=== PATIENT | female | born 1995 | race Two or more races ===

== ENCOUNTER → 2018-11-22 | Emergency (ER) | payer MEDICAID ==
[~2018-11-22] VITALS: Ht 160 cm; Wt 62.0 kg
[~2018-11-22] MED LIST: CEFTRIAXONE SODIUM 1 G/VIAL IM ONE; POTASSIUM CHLORIDE 20MEQ TABLET SR PO ONE; SODIUM CHLORIDE 0.9% 1,000 ML IV ONE
[2018-11-23 00:38] LABS: BASOPHILS % 0.6 % (0.0-2.0); EOSINOPHILS % 1.7 % (0.0-5.0); HEMATOCRIT. 30.6 % (36.0-48.0); HEMOGLOBIN. 9.8 g/dL (12.0-16.0); LYMPHOCYTES % 23.5 % (20.0-50.0); MEAN CORPUSCULAR HEMOGLOBIN 24.5 pg (28.0-32.0); MEAN CORPUSCULAR VOLUME 76.4 fL (81.0-99.0); MEAN PLATELET VOLUME 7.6 fl (7.4-10.4); MONOCYTES % 9.9 % (2.0-8.0); NEUTROPHILS % 64.3 % (40.0-76.0); PLATELET 364 x1000/uL (130-400); RED BLOOD CELL COUNT 4.01 mill/uL (4.2-5.4)
[2018-11-23 00:43] LABS: CHLORIDE 106 mEq/L (98-107)
[2018-11-23 00:45] LABS: HCG SCREEN NEGATIVE
[2018-11-23 00:47] LABS: ETHANOL BLOOD < 10 mg/dL
[2018-11-23 01:19] LABS: CLARITY URINE CLEAR (CLEAR); COLOR URINE YELLOW (YELLOW); KETONES URINE 1+ (NEGATIVE); LEUKOCYTE ESTERASE URINE 2+ (NEGATIVE); NITRITE URINE NEGATIVE (NEGATIVE); OCCULT BLOOD URINE NEGATIVE (NEGATIVE); PROTEIN URINE NEGATIVE (NEGATIVE); SPECIFIC GRAVITY URINE 1.036 (1.005-1.030); UROBILINOGEN URINE 0.2 E.U./dL (0.2-1.0)
[2018-11-23 01:37] LABS: *BARBITURATES SCREEN URINE NEGATIVE (NEGATIVE)
[2018-11-23 01:38] LABS: *BENZODIAZEPINES SCREEN URINE NEGATIVE (NEGATIVE); *COCAINE SCREEN URINE NEGATIVE (NEGATIVE); METHADONE URINE SCREEN NEGATIVE (NEGATIVE); OPIATES URINE SCREEN NEGATIVE (NEGATIVE)
[2018-11-23 01:39] LABS: CANNABINOID URINE SCREEN NEGATIVE (NEGATIVE); PHENCYCLIDINE URINE SCREEN NEGATIVE (NEGATIVE)
[2018-11-23 01:40] LABS: *AMPHETAMINES SCREEN URINE PRESUMTIVE POSITIVE (NEGATIVE)
[2018-11-24 06:42] VITALS: BP 110/70
== END ==
LOC: ER 23:05
DX: F15.10 Other stimulant abuse, uncomplicated (principal); R44.1 Visual hallucinations; F60.0 Paranoid personality disorder; F17.200 Nicotine dependence, unspecified, uncomplicated; Z59.0 Homelessness
CPT/HCPCS: 36415; 80305; 81003; 99283